=== PATIENT | female | born 1985 | race Caucasian/White ===

== ENCOUNTER 2019-06-11 04:50 | Inpatient (IN) | payer OTHER ==
[~2019-06-11] VITALS: Ht 167.6 cm; Wt 78.3 kg
[2019-06-11] VITALS (16 sets, daily range): BP systolic 95–135; BP diastolic 51–84
[2019-06-11 05:52] LABS: HEMATOCRIT 40.6 % (36.0-47.0); HEMOGLOBIN 13.2 g/dl (12.0-15.5); MEAN CORPUSCULAR HEMOGLOBIN 30.4 pg (27.0-33.0); MEAN CORPUSCULAR HGB CONC 32.5 g/dl (32.0-36.5); MEAN CORPUSCULAR VOLUME 93.5 fl (80.0-96.0); PLATELET COUNT, AUTOMATED 250 10^3/uL (150-450); RED BLOOD COUNT 4.34 10^6/uL (4.00-5.40); WHITE BLOOD COUNT 14.6 10^3/uL (4.0-10.0)
[2019-06-11] MEDS ORDERED: FENTANYL 2MCG/ML ROPIVACAINE 0.2% IN 0.9% NACL 100ML IVBAG As Ordered ONE (06:14)
[2019-06-11] MEDS ORDERED: LACTATED RINGER'S 1000 ML IV STA (06:25)
[2019-06-11] MEDS ORDERED: LR 1,000 ML IV SCH (06:25)
--- NOTE | 2019-06-11 06:50 | HPEPDOC ---
Obstetrical History & Physical General Date of Admission Jun 11, 2019 at 05:19 History of Present Illness 33 yo at 39+1 weeks gestation by LMP of 08Sep2018 c/w 12+5 week US on 08Dec2018 presented to L&D with the complaint of regular, painful contractions. She denies any vaginal bleeding or leakage of fluid. She endorses movement. She had a C section for her first delivery for NRFHT followed by two successful VBACs. She strongly desires a TOLAC for this . Chief Complaint: Contractions, term Information Provided By: Patient Age: 33 : 4 Term: 3 Pre-term: 0 Abortions: 0 Livin Care Care: Good Care Dating Final EDC: Jun 17, 2019 Final EDC for Daily Update: Jun 17, 2019 Final EDC by: LMP LMP: Sep 08, 2018 1st Trimester Date: Dec 08, 2018 (12+5 week US on 08Dec2018 c/w LMP dating. JUNIOR remains [id number].) Antepartum Course Diagnos(e)s AMA --> low risk cff DNA genetic screening History of MVP with symptoms--> Had normal echocardiogram and has had no further symptoms Fetus followed with serial Ultrasounds for mild pelviectasis and echogenic foci near stomach --> both resolved, CMV titers negative. echo also normal. 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 Past Medical History Medical History Mitral valve prolapse history --> Echocardiogram normal and no further symptoms in Advanced maternal age Surgical History: section, [place] teeth Family History Family History Mother of cardiomyopathy in her 30s Social History Marital Status: Family situation: Spouse/partner home Psychosocial History: No pertinent psych hx * Smoker: non-smoker Alcohol: Denies Drugs: denies Imunizations Tdap status: current Influenza Status: current Allergies Coded Allergies: No Known Allergies (Verified , 03/09/11) Physical Examination Physical Examination GENERAL: Alert and oriented times three. ABDOMEN: Gravid and non-tender to touch. FETUS: Is vertex (VTX) by sterile vaginal examination (SVE) EXTREMITIES: No edema. Vital Signs/I&O Vital Signs Date Time Temp Pulse Resp B/P (MAP) Pulse Ox O2 Delivery O2 Flow Rate FiO2 06/11/19 05:03 97.6 98 18 124/72 (89) Laboratory Data 24H LABS Laboratory Tests 2 06/11/19 05:33: 06/11/19 05:40: Nucleated Red Blood Cells % (auto) 0.0 CBC/BMP Laboratory Tests 06/11/19 05:40 Urine Culture: No Growth Pertinent Laboratoy Data Blood Type: A+ RBC Antibody Screen: Negative HIV: Negative Hepatitis B: Negative Hepatitis C: Unknown Rapid Plasma Reagin: Nonreactive Rubella: Immune Varicella: Unknown Chlamydia/Gonorrhea: Unknown Group B Streptococcus: Negative Quad Screen Test: Unknown Cystic Fibrosis: Unknown Glucose Tolerance Test: 94 Anatomy Ultrasound Placenta Location: Anterior Normal Anatomy: Yes (Mild pelviectasis and echogenic foci near stomach initially but both resolved after serial imaging) Placenta Previa: No Steroid Therapy Steroid Therapy: No Vaginal Examination Dilation: 4 cm Effacement: 80% Station: -2 Cervical Consistency: Soft Cervical Position: Middle Presentation: Cephalic presentation Position: Vertex (occiput) (Cervix 4/80/-2 per RN exam) Assessment Heart Rate (FHR): 130 Variability: Moderate Accelerations: Positive Decelerations: None Tocometer Contractions: Yes Frequency: regular Duration: greater than 60 seconds Strength: palpated as strong Assessment/Plan Assessment 33 yo at 39+1 weeks gestation presents to L&D in active labor. Strongly desires TOLAC. Has had two successful VBACs. Plan Admit to L&D for expectant management of labor. Will augment as clinically indicated. Apply IV fluids. GBS negative. Clear liquid diet. Patient may have epidural if desired. Patient strongly desires TOLAC and is well aware of all risks and benefits. Anticipate . All questions answered. DO BLANCA Briseno CHRISTOPHER J. DO Jun 11, 2019 06:50
[2019-06-11] MEDS ORDERED: OXYTOCIN 30 UNITS IN 0.9% NaCl 500ML IV BAG (J2590) As Ordered ONE (07:27)
[2019-06-11] MEDS ORDERED: LACTATED RINGER'S 1000 ML IV PRN (07:45)
[2019-06-11] MEDS ORDERED: EPIDURAL COMMENT XX SCH (07:45)
[2019-06-11] MEDS ORDERED: FENTANYL/ROPIVACAINE/NACL BAG 100 ML EPIDURAL SCH (07:45)
[2019-06-11] MEDS ORDERED: ONDANSETRON 4MG/2ML VIAL (J2405) IV PRN (07:45)
[2019-06-11] MEDS ORDERED: ePHEDrine SULFATE 25 MG/5 ML(5MG/ML) SYRINGE IV PRN (07:45)
[2019-06-11] MEDS ORDERED: REFRIGERATOR IV KEYS XX PRN (07:45)
[2019-06-11] MEDS ORDERED: EPIDURAL/PCA KEYS XX PRN (07:45)
[2019-06-11] MEDS ORDERED: diphenhydrAMINE INJ 50MG/ML VIAL (J1200) IV PRN (07:45)
[2019-06-11] MEDS ORDERED: NALOXONE INJ 0.4 MG/1 ML VIAL (J2310) IV PRN (07:45)
[2019-06-11] MEDS ORDERED: ACETAMINOPHEN 500 MG TAB PO PRN (08:00)
[2019-06-11] MEDS ORDERED: ACETAMINOPHEN TAB 650MG DOSE (2X325MG) PO PRN (08:00)
[2019-06-11] MEDS ORDERED: IBUPROFEN 600 MG TAB PO PRN (08:00)
[2019-06-11] MEDS ORDERED: IBUPROFEN 800 MG TAB PO PRN (08:00)
[2019-06-11] MEDS ORDERED: OXYTOCIN DRIP 30 UNITS in IV 1 EA IV SCH (08:10)
[2019-06-11] MEDS ORDERED: DIBUCAINE 1% OINTMENT 30GM TOP PRN (08:15)
[2019-06-11] MEDS ORDERED: DOCUSATE SODIUM 100 MG CAP PO PRN (08:15)
[2019-06-11] MEDS ORDERED: RHOGAM 300 MCG (1500 IU) INJ (J2790) IM SCH (08:15)
[2019-06-11] MEDS ORDERED: MEASLES,MUMPS,RUBELLA VACCINE INJ (MMR-II) (90707) SC SCH (08:15)
--- NOTE | 2019-06-11 08:19 | DNPDOC ---
[facility] Delivery Note Delivery Note DATE OF DELIVERY: 11 June 2019 PREDELIVERY DIAGNOSIS: 39w1d gestation and labor, history of prior section. POST DELIVERY DIAGNOSIS: Delivered. PROCEDURE: vaginal after DISTRIBUTION ESTIMATOR: Dr. Karin Mishra MD ANESTHESIA: epidural ESTIMATED BLOOD LOSS: 200 mL. FINDINGS: 6 pound 13 ounce (3090g) male , Score 8/9 DELIVERY SUMMARY: Madeline is a 33yo [id number] s/p uncomplicated at 0755 on 06/11/2019 after presenting in active labor at 39w1d. She received an epidural and labor progressed normally until she reached C/C/0 at which point AROM was performed (clear) and she began pushing. With two sets of pushes, infant's head delivered OA, restituted GRISEL. Left anterior shoulder delivered followed by posterior shoulder and corpus. was vigorous with spontaneous cry, placed on maternal abdomen and cord was clamped x2 and cut by me after approximately 2 minutes. Infant's nose and mouth were suctioned with bulb suction. Apgars 8/9. With traction on the umbilical cord and uterine massage, placenta delivered spontaneously and intact with 3 vessel centrally inserted cord. More uterine massage was performed and fundus was then firm at u-1cm. Inspection of perineum and vagina revealed no lacerations. Total hemostasis was observed. All counts were correct x2. Mom and infant were doing well when I left the room. MD Tad Sorenson Katrina D MD Jun 11, 2019 08:19
[2019-06-11] MEDS: PRENATAL VITAMINS CHEWABLE TABLET PO SCH (09:00)
[2019-06-11] MEDS ORDERED: PRENTAB9 PO (09:45)
[2019-06-12 06:00] VITALS: BP 111/69
--- NOTE | 2019-06-12 07:29 | IPNPDOC ---
Progress Note Date of Service: Jun 12, 2019 Day#: 1 Progress Note PPD 1 SUBJECT: Madeline is a 33yo [id number] s/p uncomplicated at 0755 on 06/11/2019 after presenting in active labor at 39w1d, doing well day # 1. She has been ambulating, voiding spontaneously without issue and tolerating regular diet. Breast feeding without issue. Reports lochia is like a heavy period still. No f/c/n/v/CP/SOB. OBJECTIVE: VITAL SIGNS: Within normal limits, afebrile. Alert and oriented times three. Abdomen: Fundus firm at U-2. Soft, NTTP. Extremities: no pain with palpation of calves ASSESSMENT: Madeline is a 33yo [id number] s/p uncomplicated at 0755 on 06/11/2019 after presenting in active labor at 39w1d, doing well day # 1. Vitals within normal limits, afebrile, hemodynamically stable with no evidence of infection. PLAN: 1. Discharge to home today. 2. Tylenol and Motrin for pain. 3. Encourage breast feeding and ambulation. 4. Interested in BTL, will discuss further at PP appt 5. Routine PP visit in 6 weeks in clinic. 6. Discussed return precautions at length. Dr. Karin Mishra MD VS, I&O, 24H, [facility] Vital Signs/I&O Vital Signs Date Time Temp Pulse Resp B/P (MAP) Pulse Ox O2 Delivery O2 Flow Rate FiO2 06/12/19 06:00 98.5 78 16 111/69 (83) 97 Room Air I&O- Last 24 Hours up to 6 AM 06/12/19 06:00 Intake Total 1721 ml Output Total 600 ml Balance 1121 ml Laboratory Data 24H LABS Laboratory Tests 2 06/11/19 08:22: Serology Scanned Report Hepatitis B Testing Karin Mishra MD Jun 12, 2019 07:29
[2019-06-12] MEDS ORDERED: IBUP80TA PO (07:31)
[2019-06-12] MEDS ORDERED: ACET-683 PO (07:31)
--- NOTE | 2019-06-12 07:34 | DS.PDOC ---
Discharge Summary General Date of Admission Jun 11, 2019 at 05:19 Date of Discharge Jun 12, 2019 Attending Physician: Karin Mishra MD Discharge Summary PROCEDURES PERFORMED DURING STAY: vaginal after section ADMITTING DIAGNOSES: 1. Active labor at term 2. History of prior section DISCHARGE DIAGNOSES: 1. Active labor at term, delivered 2. History of prior section COMPLICATIONS/CHIEF COMPLAINT: Labor Check. HISTORY OF PRESENT ILLNESS/HOSPITAL COURSE: Madeline is a 33yo [id number] s/p uncomplicated at 0755 on 06/11/2019 after presenting in active labor at 39w1d, doing well day # 1. She has had a benign course. At time of discharge, vitals are within normal limits, she is afebrile, hemodynamically stable with no evidence of infection. DISCHARGE MEDICATIONS: Please see below. ALLERGIES: Please see below. PHYSICAL EXAMINATION ON DISCHARGE: VITAL SIGNS: Within normal limits, afebrile. Alert and oriented times three. Abdomen: Fundus firm at U-2. Soft, NTTP. Extremities: no pain with palpation of calves LABORATORY DATA: Please see below. DIET: regular DISPOSITION: home DISCHARGE PLAN/INSTRUCTIONS: 1. Discharge to home today. 2. Tylenol and Motrin for pain. 3. Encourage breast feeding and ambulation. 4. Interested in BTL, will discuss further at PP appt 5. Routine PP visit in 6 weeks in clinic. 6. Discussed return precautions at length. DISCHARGE CONDITION: Stable TIME SPENT ON DISCHARGE: Greater than [address] Karin Mishra MD Vital Signs/I&Os Vital Signs Date Time Temp Pulse Resp B/P (MAP) Pulse Ox O2 Delivery O2 Flow Rate FiO2 06/12/19 06:00 98.5 78 16 111/69 (83) 97 Room Air I&O- Last 24 Hours up to 6 AM 06/12/19 06:00 Intake Total 1721 ml Output Total 600 ml Balance 1121 ml Laboratory Data Labs 24H Laboratory Tests 2 06/11/19 08:22: Serology Scanned Report Hepatitis B Testing Discharge Medications Scheduled No.137/Iron/Folic Acd ( Vitamin Tablet) 1 Each Tablet, 1 TAB PO DAILY, (Reported) Scheduled PRN Acetaminophen (Acetaminophen) 500 Mg Tablet, 1,000 MG PO Q6HP PRN for PAIN LEVEL 6-10 Ibuprofen (Ibuprofen) 800 Mg Tablet, 800 MG PO Q8HP PRN for PAIN LEVEL 6-10 Allergies Coded Allergies: No Known Allergies (Verified , 03/09/11) Karin Mishra MD Jun 12, 2019 07:34
[2019-06-12] MEDS: PRENATAL VITAMINS CHEWABLE TABLET PO SCH (07:44)
--- NOTE | 2019-06-13 09:37 | IPN ---
DATE: 06/12/2019 SUMMARY: Patient requested circumcision of her male infant. After discussing risks and benefits of circumcision, the medical and nonmedical indications, penile block and aftercare, expressed understanding penile block aftercare and bleeding. Signed the consent form. All questions were answered. 20-minute discussion. We await clearance by the renal technician.
== END 2019-06-12 17:00 | disposition home or self-care (01) | DRG 807 ==
LOC: M LDO 04:50 → M LDI 05:19 → M OBS 13:50
PROVIDERS: ADMIT Obstetrics & Gynecology; ATTEND Obstetrics & Gynecology
PROC: 10E0XZZ Delivery of Products of Conception, External Approach (ICD-10-PCS; principal; 2019-06-11)
PROC: 10907ZC Drainage of Amniotic Fluid, Therapeutic from Products of Conception, Via Natural or Artificial Opening (ICD-10-PCS; 2019-06-11)
DX: O34.211 Maternal care for low transverse scar from previous cesarean delivery (principal); Z37.0 Single live birth; Z3A.39 39 weeks gestation of pregnancy